=== PATIENT | male | born 2000 | race Caucasian/White ===

== ENCOUNTER 2020-04-05 23:09 | Emergency (ER) | payer SELFPAY ==
--- NOTE | 2020-04-05 23:49 | ER Document Report ---
ED Wound - General Chief Complaint: Puncture Wound to Foot Stated Complaint: POSSIBLE INJURY TO LEFT FOOT Time Seen by Provider: 04/05/20 23:36 Mode of Arrival: Ambulatory Information source: Patient Notes: Patient is a 19-year-old male comes emergency room complaining of stepping on a nail 2 days ago. Patient was wearing rubber soled shoes and was at a friend's house stepped on a nail that punctured through the shoe and just barely into the skin at the base of the fourth right digit of the foot. Patient states he was on it for most of the night I took a picture that showed it swelling pretty much that the next morning yesterday he slept for about 12 hours when he woke up the swelling is down but he still has some moderate amount of discomfort and pain. Patient is here for evaluation and possible antibiotic. Patient denies any other medical problems. He is not diabetic. Patient does smoke. - HPI Patient complains to provider of: Puncture wound Occurred: Other - 2 days Onset/Duration: Sudden Quality of pain: Achy, Sharp Severity: Moderate Pain Level: 3 Context: Injury Skin Temperature: Warm Skin Color: Kraemer Capillary refill: < 3 seconds Sensations intact: Yes Distal pulses present: Yes Associated Symptoms: None - Related Data Allergies/Adverse Reactions: No Known Allergies Allergy (Unverified 04/05/20 23:43) Past Medical History - General Information source: Patient - Social History Smoking Status: Current Every Day Smoker Cigarette use (# per day): Yes - Half pack Smoking Education Provided: Yes Frequency of alcohol use: None Drug Abuse: None Lives with: Family Family History: Reviewed & Not Pertinent Review of Systems - Review of Systems Constitutional: No symptoms reported EENT: No symptoms reported Cardiovascular: No symptoms reported Respiratory: No symptoms reported Gastrointestinal: No symptoms reported Genitourinary: No symptoms reported Male Genitourinary: No symptoms reported Musculoskeletal: No symptoms reported Skin: See HPI, Other - Puncture wound Hematologic/Lymphatic: No symptoms reported Neurological/Psychological: No symptoms reported Physical Exam - Vital signs Vitals: Temp Pulse Resp BP Pulse Ox 97.7 F 88 17 146/72 H 100 04/05/20 23:20 04/05/20 23:20 04/05/20 23:20 04/05/20 23:20 04/05/20 23:20 Interpretation: Hypertensive - Notes Notes: PHYSICAL EXAMINATION: GENERAL: Well-appearing, well-nourished and in no acute distress. LUNGS: Breath sounds clear to auscultation bilaterally and equal. No wheezes rales or rhonchi. HEART: Regular rate and rhythm without murmurs Musculoskeletal: Examination patient's her concern is his left foot. Visualization of patient's left foot compared to his right looks normal at the comparison dias. On the plantar surface of the foot there is a healing or closed puncture gabi at the base of the fourth toe and the soft tissue area. Illumination with the flashlight does not show any sign of foreign body and it does not show to be very deep with the penetration of light. Patient has full range of motion of the toes mild tenderness to palpation. No sign of erythema at this time and no sign of infection. NEUROLOGICAL: Cranial nerves grossly intact. Normal speech, normal gait. Normal sensory, motor exams PSYCH: Normal mood, normal affect. SKIN: See musculoskeletal above for full detail Course - Re-evaluation Re-evalutation: 04/05/20 23:47 Given the patient stepped on a nail through rubber shoes I did discuss the case with Dr. Tariq and actually he evaluated the patient as well and felt that he is young and we can place him on Keflex and monitor closely. Scott that use of the quinolones at this point might be a little bit more than he needs however patient is aware that it continues to get worse or more swollen and red he is to return to ER for reevaluation and possible change of the antibiotic. - Vital Signs Vital signs: Temp Pulse Resp BP Pulse Ox 98.1 F 82 18 133/69 H 98 04/06/20 00:21 04/06/20 00:21 04/06/20 00:21 04/06/20 00:21 04/06/20 00:21 - Laboratory Results Critical Laboratory Results Reviewed: No Critical Results - Radiology Results Critical Radiology Results Reviewed: No Critical Results Discharge - Discharge Clinical Impression: Puncture wound of foot Condition: Stable Disposition: HOME, SELF-CARE Instructions: Prophylactic Antibiotic ([facility]), Soap Cleansing ([facility]) Additional Instructions: Home and rest. Soak your foot 2-3 times a day and antibacterial soap or just warm soapy water. Take antibiotics until completion. If the redness continues on or gets worse you need to return to ER immediately for reevaluation and possible change in antibiotics. Prescriptions: Cephalexin Monohydrate [Keflex 500 mg Capsule] 500 mg PO Q6H 5 Days #40 capsule Forms: Elevated Blood Pressure, Smoking Cessation Education, Return to Work
[2020-04-06 00:22] VITALS: BP 133/69
== END 2020-04-06 | disposition home or self-care (01) ==
LOC: ER 23:09
DX: S91.13 Puncture wound without foreign body of toe without damage to nail (principal); W45.0XXA Nail entering through skin, initial encounter; Y92.009 Unspecified place in unspecified non-institutional (private) residence as the place of occurrence of the external cause; F17.210 Nicotine dependence, cigarettes, uncomplicated
CPT/HCPCS: 99283